=== PATIENT | female | born 1995 | race Two or more races ===

== ENCOUNTER 2020-01-25 11:22 | Outpatient (CLI) | payer OTHER ==
[2020-01-25] MEDS ORDERED: RINGERS SOLUTION,LACTATED 1,000 ML IV PRN (12:02)
[2020-01-25 13:12] LABS: ABSOLUTE EOSINOPHILS # (AUTO) 0.1 10^3/uL (0.0-0.6); ABSOLUTE LYMPHOCYTES (AUTO) 1.6 10^3/uL (0.5-4.7); ABSOLUTE MONOCYTES (AUTO) 0.8 10^3/uL (0.1-1.4); BASOPHILS % (AUTO) 0.4 % (0-2); EOSINOPHILS % (AUTO) 1.3 % (0-6); HEMATOCRIT 31.2 % (36.0-47.0); HEMOGLOBIN 10.4 g/dL (12.0-15.5); LYMPHOCYTES % (AUTO) 15.1 % (13-45); MEAN CORPUSCULAR HEMOGLOBIN 26.2 pg (27.0-33.4); MEAN CORPUSCULAR HGB CONC 33.5 g/dL (32.0-36.0); MEAN CORPUSCULAR VOLUME 78 fl (80-97); MONOCYTES % (AUTO) 7.4 % (3-13); PLATELET COUNT 116 10^3/uL (150-450); RED BLOOD COUNT 3.98 10^6/uL (3.72-5.28); RED CELL DISTRIBUTION WIDTH 14.8 % (11.5-14.0); SEGMENTED NEUTROPHILS % (AUTO) 75.8 % (42-78); TOTAL CELLS COUNTED % (AUTO) 100 %; WHITE BLOOD COUNT 10.6 10^3/uL (4.0-10.5)
[2020-01-25 13:30] LABS: ALBUMIN 3.1 g/dL (3.5-5.0); ALKALINE PHOSPHATASE 194 U/L (38-126); ANION GAP 5 (5-19); ASPARTATE AMINO TRANSFERASE 20 U/L (14-36); BILIRUBIN,DIRECT 0.2 mg/dL (0.0-0.4); BILIRUBIN,TOTAL 0.5 mg/dL (0.2-1.3); BLOOD UREA NITROGEN 5 mg/dL (7-20); CALCIUM 8.9 mg/dL (8.4-10.2); CARBON DIOXIDE 25 mmol/L (22-30); CHLORIDE 104 mmol/L (98-107); GLUCOSE 96 mg/dL (75-110); POTASSIUM 3.6 mmol/L (3.6-5.0); URIC ACID 4.3 mg/dL (2.5-6.2)
[2020-01-25 14:29] LABS: APPEARANCE,URINE SLIGHTLY-CLOUDY; BILIRUBIN,URINE NEGATIVE (NEGATIVE); COLOR,URINE YELLOW; GLUCOSE, URINE NEGATIVE (NEGATIVE); KETONES,URINE NEGATIVE (NEGATIVE); LEUKOCYTE ESTERASE,URINE LARGE (NEGATIVE); NITRITE,URINE NEGATIVE (NEGATIVE); PROTEIN,URINE NEGATIVE (NEGATIVE); URINE SPECIFIC GRAVITY 1.013; UROBILINOGEN,URINE NEGATIVE mg/dL (<2.0)
[2020-01-25 14:42] LABS: URINE AMPHETAMINES SCREEN NEGATIVE; URINE BARBITURATES SCREEN NEGATIVE; URINE BENZODIAZEPINES SCREEN NEGATIVE; URINE COCAINE SCREEN NEGATIVE; URINE MARIJUANA (THC) SCREEN NEGATIVE; URINE METHADONE SCREEN NEGATIVE; URINE PHENCYCLIDINE SCREEN NEGATIVE
[2020-01-25 18:51] LABS: UR PRO/CREAT RATIO RESULT 0.2 mg/mg (0.0-0.2); URINE CREATININE 103.3 mg/dL (16-327); URINE PROTEIN 24.6 mg/dL (<12)
== END 2020-01-25 14:32 | disposition home or self-care (01) ==
LOC: LC 11:22
PROVIDERS: ATTEND Student in an Organized Health Care Education/Training Program
DX: O16.3 Unspecified maternal hypertension, third trimester (principal); Z3A.40 40 weeks gestation of pregnancy
CPT/HCPCS: 36415; 59025; 80053; 80307; 81001; 82570; 83615; 84156; 84550; 85025

== ENCOUNTER 2020-01-26 11:10 | Outpatient (CLI) | payer OTHER ==
[2020-01-26 13:03] LABS: APPEARANCE,URINE CLOUDY; BILIRUBIN,URINE NEGATIVE (NEGATIVE); COLOR,URINE YELLOW; GLUCOSE, URINE NEGATIVE (NEGATIVE); KETONES,URINE NEGATIVE (NEGATIVE); LEUKOCYTE ESTERASE,URINE LARGE (NEGATIVE); NITRITE,URINE NEGATIVE (NEGATIVE); PROTEIN,URINE NEGATIVE (NEGATIVE); URINE SPECIFIC GRAVITY 1.004; UROBILINOGEN,URINE NEGATIVE mg/dL (<2.0)
[2020-01-26 13:34] LABS: URINE AMPHETAMINES SCREEN NEGATIVE; URINE BARBITURATES SCREEN NEGATIVE; URINE BENZODIAZEPINES SCREEN NEGATIVE; URINE COCAINE SCREEN NEGATIVE; URINE MARIJUANA (THC) SCREEN NEGATIVE; URINE METHADONE SCREEN NEGATIVE; URINE PHENCYCLIDINE SCREEN NEGATIVE
[2020-01-26] MEDS ORDERED: HYDROXYZINE PAMOATE 50 MG CAPSULE ONE (13:36)
[2020-01-26] MEDS ORDERED: HYDROXYZINE PAMOATE 50 MG CAPSULE PO ONE (13:40)
--- NOTE | 2020-01-26 14:03 | Non Stress Test Report ---
Non Stress Test Datetime Report Generated by CPN: 01/26/2020 14:03 DEMOGRAPHIC EGA NST: 40.2 INDICATION Indication for Study (NST) Other: LC- ctxs VITAL SIGNS Temperature - NST: 98.3 Pulse - NST: 73 RESP - NST: 15 NBPSYS NST: 146 NBPDIA NST: 84 MONITORING Monitor Explained: Monitor Explained; Test Explained; Patient Verbalized Understanding Time on Monitor: 01/26/2020 11:34 Time off Monitor: 01/26/2020 12:27 NST Duration: 53 NST INTERVENTIONS NST Interventions: PO Hydration Physician Notified NST: Dr Negro BABY A: [id number] BABY A Movement : Present Contraction Frequency : irregular FHR Baseline : 140 Accelerations : 15X15 Decelerations : None Variability : Moderate 6-25bpm NST Review: Meets Criteria for Reactive NST NST Review and Verified By : K Cameron, RN NST Results: Reactive NST COMMENTS NST Comments: MD on unit NST REPORT Report Trigger: Send Report
== END 2020-01-26 13:50 | disposition home or self-care (01) ==
LOC: LC 11:10
PROVIDERS: ATTEND Obstetrics & Gynecology
DX: O16.3 Unspecified maternal hypertension, third trimester (principal); Z3A.40 40 weeks gestation of pregnancy
CPT/HCPCS: 59025; 80307; 81005

== ENCOUNTER 2020-01-26 22:55 | Outpatient (CLI) | payer OTHER ==
[2020-01-26 23:26] LABS: APPEARANCE,URINE CLOUDY; BILIRUBIN,URINE NEGATIVE (NEGATIVE); COLOR,URINE RED; GLUCOSE, URINE NEGATIVE (NEGATIVE); KETONES,URINE NEGATIVE (NEGATIVE); LEUKOCYTE ESTERASE,URINE LARGE (NEGATIVE); NITRITE,URINE NEGATIVE (NEGATIVE); PROTEIN,URINE 30 mg/dL (NEGATIVE); URINE SPECIFIC GRAVITY 1.011; UROBILINOGEN,URINE NEGATIVE mg/dL (<2.0)
[2020-01-26 23:41] LABS: URINE AMPHETAMINES SCREEN NEGATIVE; URINE BARBITURATES SCREEN NEGATIVE; URINE BENZODIAZEPINES SCREEN NEGATIVE; URINE COCAINE SCREEN NEGATIVE; URINE MARIJUANA (THC) SCREEN NEGATIVE; URINE METHADONE SCREEN NEGATIVE; URINE PHENCYCLIDINE SCREEN NEGATIVE
[2020-01-27] MEDS ORDERED: NALBUPHINE HCL INJ 10 MG/1 ML AMPULE ONE (01:40)
[2020-01-27] MEDS ORDERED: PROMETHAZINE HCL INJ 25 MG/1 ML VIAL ONE (01:40)
[2020-01-27] MEDS ORDERED: NALBUPHINE HCL INJ 10 MG/1 ML AMPULE IM ONE (01:41)
[2020-01-27] MEDS ORDERED: NALBUPHINE HCL INJ 10 MG/1 ML AMPULE IV ONE (01:41)
[2020-01-27] MEDS ORDERED: PROMETHAZINE HCL INJ 25 MG/1 ML VIAL IV ONE (01:42)
--- NOTE | 2020-01-27 02:17 | Non Stress Test Report ---
Non Stress Test Datetime Report Generated by CPN: 01/27/2020 02:16 DEMOGRAPHIC EGA NST: 40.2 INDICATION Indication for Study (NST) Other: labor check MONITORING Monitor Explained: Monitor Explained; Test Explained; Patient Verbalized Understanding Time on Monitor: 01/26/2020 23:05 Time off Monitor: 01/27/2020 02:06 NST Duration: 181 NST INTERVENTIONS NST Interventions: IV Fluids Physician Notified NST: Negro BABY A: [id number] BABY A Movement : Present Contraction Frequency : irregular FHR Baseline : 155 Accelerations : 15X15 Decelerations : None NST Review: Meets Criteria for Reactive NST NST Review and Verified By : ESTEBAN [place] NST Results: Reactive NST COMMENTS NST Comments: Dr Negro on unit and reviewed tracing. NST REPORT Report Trigger: Send Report
== END 2020-01-27 02:18 | disposition home or self-care (01) ==
LOC: LC 22:55
PROVIDERS: ATTEND Obstetrics & Gynecology
DX: O47.1 False labor at or after 37 completed weeks of gestation (principal); Z3A.40 40 weeks gestation of pregnancy
CPT/HCPCS: 59025; 81005; 80307; J2300; J2550

== ENCOUNTER 2020-01-27 09:38 | Inpatient (IN) | payer OTHER ==
[2020-01-27] MEDS ORDERED: PENICILLIN G POTASSIUM 5,000,000 UNIT in DEXTROSE 5%-WATER 100 ML IV ONE (10:03)
[2020-01-27] MEDS ORDERED: OXYTOCIN 10 UNIT/ML VIAL ONE (10:14)
[2020-01-27] MEDS ORDERED: OXYTOCIN/0.9 % SODIUM CHLORIDE 30 UNIT/500 ML RTUINJ ONE (10:14)
[2020-01-27] MEDS ORDERED: MISOPROSTOL 0.2 MG TABLET ONE (10:14)
[2020-01-27] MEDS ORDERED: PENICILLIN G-K 5 MILLION UNIT VIAL ONE ×4 (10:14→22:17)
[2020-01-27] MEDS ORDERED: LIDOCAINE 1% INJ-PF (10 MG/ML) 30 ML SDV ONE (10:14)
[2020-01-27 10:26] LABS: ABSOLUTE BASOPHILS # (AUTO) 0.1 10^3/uL (0.0-0.2); ABSOLUTE LYMPHOCYTES (AUTO) 1.5 10^3/uL (0.5-4.7); ABSOLUTE MONOCYTES (AUTO) 0.7 10^3/uL (0.1-1.4); ABSOLUTE NEUT (AUTO) 12.2 10^3/uL (1.7-8.2); BASOPHILS % (AUTO) 0.4 % (0-2); HEMOGLOBIN 11.2 g/dL (12.0-15.5); LYMPHOCYTES % (AUTO) 10.6 % (13-45); MEAN CORPUSCULAR HEMOGLOBIN 26.4 pg (27.0-33.4); MEAN CORPUSCULAR VOLUME 78 fl (80-97); PLATELET COUNT 122 10^3/uL (150-450); RED BLOOD COUNT 4.25 10^6/uL (3.72-5.28); RED CELL DISTRIBUTION WIDTH 14.6 % (11.5-14.0); TOTAL CELLS COUNTED % (AUTO) 100 %; WHITE BLOOD COUNT 14.5 10^3/uL (4.0-10.5)
[2020-01-27] MEDS: RINGERS SOLUTION,LACTATED 1,000 ML IV PRN ×2 (10:27→18:12)
[2020-01-27] MEDS ORDERED: FENTANYL/BUPIVACAINE/NS/PF 300 MCG/150 ML RTUINJ EPI ONE ×2 (10:32→23:57)
[2020-01-27] MEDS ORDERED: ROPIVACAINE HCL 0.2% INJ/PF (2 MG/ML) 20 ML SDV ONE (10:32)
[2020-01-27] MEDS ORDERED: EPHEDRINE SULFATE INJ 50 MG/1 ML AMPULE ONE (10:32)
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
[2020-01-27 11:15] LABS: APPEARANCE,URINE SLIGHTLY-CLOUDY; BILIRUBIN,URINE NEGATIVE (NEGATIVE); COLOR,URINE YELLOW; GLUCOSE, URINE NEGATIVE (NEGATIVE); KETONES,URINE 20 mg/dL (NEGATIVE); LEUKOCYTE ESTERASE,URINE MODERATE (NEGATIVE); NITRITE,URINE NEGATIVE (NEGATIVE); PROTEIN,URINE NEGATIVE (NEGATIVE); URINE SPECIFIC GRAVITY 1.003; UROBILINOGEN,URINE NEGATIVE mg/dL (<2.0)
[2020-01-27 11:41] LABS: URINE AMPHETAMINES SCREEN NEGATIVE; URINE BARBITURATES SCREEN NEGATIVE; URINE BENZODIAZEPINES SCREEN NEGATIVE; URINE COCAINE SCREEN NEGATIVE; URINE MARIJUANA (THC) SCREEN NEGATIVE; URINE METHADONE SCREEN NEGATIVE; URINE PHENCYCLIDINE SCREEN NEGATIVE
[2020-01-27] MEDS: PENICILLIN G POTASSIUM 2,500,000 UNIT in DEXTROSE 5%-WATER 50 ML IV SCH ×3 (14:41→22:20)
[2020-01-27 15:27] LABS: ALBUMIN 3.3 g/dL (3.5-5.0); ALKALINE PHOSPHATASE 230 U/L (38-126); ANION GAP 7 (5-19); ASPARTATE AMINO TRANSFERASE 25 U/L (14-36); BILIRUBIN,DIRECT 0.3 mg/dL (0.0-0.4); BILIRUBIN,TOTAL 0.9 mg/dL (0.2-1.3); BLOOD UREA NITROGEN 5 mg/dL (7-20); CALCIUM 9.5 mg/dL (8.4-10.2); CARBON DIOXIDE 21 mmol/L (22-30); CHLORIDE 103 mmol/L (98-107); GLUCOSE 100 mg/dL (75-110); POTASSIUM 3.9 mmol/L (3.6-5.0); TOTAL PROTEIN 6.3 g/dL (6.3-8.2); URIC ACID 4.4 mg/dL (2.5-6.2)
[2020-01-27] MEDS ORDERED: DIPHENHYDRAMINE HCL 50 MG/ML VIAL ONE (18:54)
[2020-01-28] MEDS: PENICILLIN G POTASSIUM 2,500,000 UNIT in DEXTROSE 5%-WATER 50 ML IV SCH ×5 (02:12→22:06)
[2020-01-28] MEDS ORDERED: DIPHENHYDRAMINE HCL 50 MG/ML VIAL ONE (10:25)
[2020-01-28] MEDS ORDERED: DIPHENHYDRAMINE HCL 50 MG/ML VIAL IV ONE (10:26)
[2020-01-28] MEDS ORDERED: CITRIC ACID/SODIUM CITRATE ORAL SOLN 15 ML UDCUP ONE (11:49)
[2020-01-28] MEDS ORDERED: CEFAZOLIN 2 GM/D5W RTU 2 GM/50 ML RTUPB IV ONE (11:49)
--- NOTE | 2020-01-28 11:57 | L&D Progress Notes ---
PROGRESS NOTES Datetime Report Generated by CPN: 01/28/2020 11:57 PROGRESS NOTE Impression: Arrest of Dilatation/Descent; Reassuring Heart Rate Procedures: Sterile Vag Exam Plan: Deliver- Section Comment: Arrest of dilation and descent, discussed turning off pitocin, will prepare for CS, Dr. Chopra to be notified. VAGINAL EXAM Dilatation: 9 Effacement: 70 Station: -1 LAST VAGINAL EXAM-NURSING Nursing Exam Dilitation: 9.0 Nursing Exam Effacement: 90 Nursing Exam Station: 1 Nursing Exam Contractions: IUPC sitting at introitus. Removed with external toco applied . Contractions palpate moderate to strong with relaxation noted. Dr Chopra on unit and notified that IUPC had come out. MEMBRANES Membranes: Ruptured Amniotic Fluid Color: Clear SIGNATURE SIGNATURE: [id number];[id number];[id number] Assignment: Kermit Chopra MD Signature: with User ID: [email or web address] : with User ID: [email or web address]
[2020-01-28] MEDS ORDERED: MIDAZOLAM 2 MG/2 ML INJ ONE (12:35)
[2020-01-28] MEDS ORDERED: LIDOCAINE 2% INJ-PF (20 MG/ML) 10 ML AMPUL ONE (12:35)
[2020-01-28] MEDS ORDERED: KETOROLAC TROMETHAMINE INJ/PF 30 MG/1 ML SDV ONE (12:35)
[2020-01-28] MEDS ORDERED: FENTANYL CITRATE INJ/PF 100 MCG/2 ML AMPUL ONE ×3 (12:35→14:01)
[2020-01-28] MEDS ORDERED: OXYTOCIN 10 UNIT/ML VIAL ONE ×2 (12:35→13:18)
[2020-01-28] MEDS ORDERED: EPHEDRINE SULFATE INJ 50 MG/1 ML AMPULE ONE (12:35)
[2020-01-28] MEDS ORDERED: OXYTOCIN/0.9 % SODIUM CHLORIDE 30 UNIT/500 ML RTUINJ ONE (12:36)
[2020-01-28] MEDS ORDERED: ACETAMINOPHEN 1,000 MG/100 ML RTUPB IV ONE (12:36)
[2020-01-28] MEDS ORDERED: ONDANSETRON HCL INJ/PF 4 MG/2 ML SDV ONE (12:36)
[2020-01-28] MEDS ORDERED: METHYLERGONOVINE MALEATE INJ/PF 0.2 MG/1 ML AMPULE ONE (13:22)
[2020-01-28] MEDS ORDERED: CARBOPROST TROMETHAMINE INJ 250 MCG/1 ML AMPULE ONE (13:22)
[2020-01-28] MEDS ORDERED: MISOPROSTOL 0.2 MG TABLET ONE (13:22)
[2020-01-28] MEDS ORDERED: PROPOFOL INJ 200 MG/20 ML VIAL IV ONE (13:26)
[2020-01-28] MEDS ORDERED: MEASLES,MUMPS&RUBELLA VACC/PF 0.5 ML VIAL SUBCUT PRN (13:45)
[2020-01-28] MEDS ORDERED: DIPH/PERTUSS(ACELL)/TETANUS VAC/PF 0.5 ML SYR (>=10YO) IM PRN (13:45)
[2020-01-28] MEDS ORDERED: ACETAMINOPHEN 1,000 MG/100 ML RTUPB IV PRN (13:45)
[2020-01-28] MEDS ORDERED: MORPHINE SULFATE 10 MG/ML INJ IM PRN (13:45)
[2020-01-28] MEDS ORDERED: OXYTOCIN/0.9 % SODIUM CHLORIDE 30 UNIT/500 ML RTUINJ IV PRN (13:45)
[2020-01-28] MEDS ORDERED: RINGERS SOLUTION,LACTATED 1,000 ML IV PRN (13:45)
[2020-01-28] MEDS ORDERED: ACETAMINOPHEN 325 MG TABLET PO PRN (13:45)
--- NOTE | 2020-01-28 13:49 | Operative Report ---
Operative Report DATE OF SURGERY: 01/28/20 PREOPERATIVE DIAGNOSIS: IUP at term failure to descend POSTOPERATIVE DIAGNOSIS: Same OPERATION: Primary low transverse O viable female SURGEON: JAYDEN GUTIERREZ ANESTHESIA: GA TISSUE REMOVED OR ALTERED: Placenta COMPLICATIONS: None ESTIMATED BLOOD LOSS: Thousand cc PROCEDURE: The patient was taken to the operating room where spinal anesthesia was obtained and found to be adequate. She was then prepped and draped in the normal sterile fashion and placed in the dorsal supine position with a leftward tilt. A Pfannenstiel skin incision was then made and carried through to the underlying layers of the fascia with the scalpel. The fascia was incised in the midline and the incision extended laterally with the Kat scissors. The superior aspect of the fascial incision was then grasped with [place] clamps elevated and the underlying rectus muscles dissected off bluntly. Attention was then turned to the inferior aspect of the fascial incision which in a similar fashion was grasped, tented up with Cayden clamps, and the rectus muscles dissected off bluntly. The rectus muscles were then in the midline and the peritoneum at the amount identified and entered bluntly. The peritoneal incision was then extended superiorly and inferiorly with good visualization of the bladder. [The bladder blade was inserted and the vesicouterine peritoneum identified grasped with [place] pickups and entered sharply with the Metzenbaum scissors. His incision was then extended laterally with the Metzenbaum scissors and a bladder flap created digitally. The bladder blade was then reinserted and the lower uterine segment incised in a transverse fashion with the scalpel. The uterine incision was then extended bluntly. The bladder blade was removed and the 's head was delivered from cephalic presentation atraumatically. The nose and mouth were suctioned and the cord doubly clamped and cut. And the infant was handed off to waiting pediatricians. The placenta was then delivered manully and the uterus exteriorized and cleared of all clots and debris. The uterine incision was then repaired with 1-0 Vicryl in a running locked fashion. A second layer of the same suture was used to obtain hemostasis via imbrication of the initial layer. The uterus was returned to the patient's abdomen. The gutters were cleared of all clots and debris. All operative sites were noted to be hemostatic. The fascia was reapproximated with 0 Vicryl in a running fashion from each lateral edge to the midline. The patient tolerated the procedure well. Sponge lap needle and instrument counts are correct -2. 2 g of Ancef were given prior to skin i ncision. The patient was taken to the recovery area awake and in stable condition.
--- NOTE | 2020-01-28 15:08 | Delivery Summary ---
Del Sum A-C Datetime Report Generated by CPN: 01/28/2020 15:08 DELIVERY PERSONNEL DELIVERY PERSONNEL: [id number] Delivery Doctor:: Kermit Chopra MD ELECTRONIC COMMUNICATIONS TECHNICIAN:: Jefferson Horne CRNA Case Technician:: Albina Brizuela RN Oil Rig Driller:: Dr. Marysol Funez Nursery Nurse:: Debbie Hay RN Nursery Nurse:: Noelle Aguilar RN Lithographing Machine Operator/ARCHITECTURE DRAFTER: Bertha Haskins, DIRECTOR OF SPORTS PERFORMANCE Lithographing Machine Operator/ARCHITECTURE DRAFTER: Gael Trimble, DIRECTOR OF SPORTS PERFORMANCE MATERNAL INFORMATION Delivery Anesthesia: Epidural; General Medications After Delivery: Pitocin 30 Units in 500ml NS/D5W; Methergine 0.2mg IM; Cytotec 1000mcg Per Rectum/Vagina Delivery QBL: 1147 Maternal Complications: Premature Rupture of Membranes; Hemorrhage; Prolonged Labor > 20 Hrs LABOR SUMMARY EDC: 01/24/2020 00:00 No. Babies in Womb: 1 Attempted: No Labor Anesthesia: Epidural LABOR INFORMATION Reason for Induction: Post Dates Onset of Labor: 01/27/2020 09:30 Oxytocin: Augmentation Group B Beta Strep: positive Antibiotics # of Doses: 7 Antibiotics Time of Last Dose: 01/28/2020 10:15 Name of Antibiotic Given: pcn Steroids Given: None Reason Steroids Not Administered: Not Applicable MEMBRANES Membranes Rupture Method: Spontaneous Rupture of Membranes: 01/27/2020 09:30 Length of Rupture (hr): 27.65 Amniotic Fluid Color: Moderate Meconium Amniotic Fluid Amount: Moderate Amniotic Fluid Odor: None STAGES OF LABOR Stage 3 hr: 0 Stage 3 min: 0 Total Time in Labor hr: 27 Total Time in Labor min: 39 VAGINAL DELIVERY Episiotomy: None Laceration #1: None Laceration Extension #1: N/A Sponge Count Correct: N/A Sharps Count Correct: N/A CSECTION DELIVERY Primary Indication: Failure of Descent Secondary Indication: N/A CSection Urgency: Non-Scheduled CSection Incidence: Primary Labor: Labor Elective: Nonelective CSection Incision: Lower Uterine Transverse BABY A INFORMATION Delivery Date/Time: 01/28/2020 13:09 Method of Delivery: Nurse Controlled Delivery: No Born in Route : No : N/A Forceps: N/A Vacuum Extraction: N/A Shoulder Dystocia : No PRESENTATION/POSITION BABY A Presentation: Cephalic Cephalic Presentation: Vertex Vertex Position: Left Occipital Anterior Breech Presentation: N/A PLACENTA INFORMATION BABY A Placenta Delivery Time : 01/28/2020 13:09 Placenta Method of Delivery: Manual Removal Placenta Status: Delivered SCORES BABY A Heart Rate 1 min: >100 bpm Resp Effort 1 min: Slow, Irregular Reflex Irritability 1 min: Cough or Sneeze or Pulls Away Muscle Tone 1 min: Active Motion Color 1 min: Blue/Pale Resuscitation Effort 1 min: Tactile Stimulation SCORE 1 MIN: 7 Heart Rate 5 min: >100 bpm Resp Effort 5 min: Good Cry Reflex Irritability 5 min: Cough or Sneeze or Pulls Away Muscle Tone 5 min: Active Motion Color 5 min: Body [place], Extremities Blue Resuscitation Effort 5 min: N/A SCORE 5 MIN: 9 INFORMATION BABY A Gestational Age at Delivery: 40.4 Gestational Status: Full Term- 39- 40.6 Weeks Outcome : Liveborn Condition : Stable Infant Sex: Female WEIGHT/LENGTH BABY A Infant Birthweight (gm): 3860 Weight (lb): 8 Infant Weight (oz): 8 Length (in): 20.50 Length (cm): 52.07 CORD INFORMATION BABY A No. Cord Vessels: 3 Nuchal Cord : N/A Cord Blood Taken: Yes-For Storage (Mom's Blood type +) Infant Suction: None ASSESSMENT BABY A Infant Complications: None Physical Findings at Delivery: Within Normal Limits Skin to Skin: No Transferred To: [facility] BABY B INFORMATION : N/A SIGNATURES Signature: with User ID: [email or web address] : I was personally available for consultation and serving as supervising physician for the MLP.
--- NOTE | 2020-01-28 15:09 | Birth Certificate Data ---
Cert Data Datetime Report Generated by CPMaye: 01/28/2020 15:08 CERTIFICATE DATA 47a. Care: Yes (01/25/2020 11:36:May Kelly RN) 47b. Date of First Visit: 07/10/2018 00:00 (01/25/2020 11:36:May Kelly RN) 47c. Date of Last Visit: 01/25/2020 00:00 (01/25/2020 11:36:May Kelly RN) 47d. Number of Visits: 12 (01/25/2020 11:36:May Kelly RN) 48a. Number of Prev Live Births: 0 (01/25/2020 11:36:May Kelly RN) 48b. Now Livin (01/25/2020 11:36:May Kelly RN) 48c. Live Births Now : 0 (01/25/2020 11:36:QS system process) 48e. Losses: 0 (01/25/2020 11:36:May Kelly RN) RISK FACTORS IN THIS 49a. Diabetes: No (01/25/2020 11:36:Vandana Call RN) 49b. Hypertension: No (01/25/2020 11:36:Vandana Call RN) 49c. Previous Births: 0 (01/25/2020 11:36:May Kelly RN) 49d. Stillborns: No (01/25/2020 11:36:Vandana Call RN) 49d. IUGR: No (01/25/2020 11:36:Vandana Call RN) 49e. Infertility Treatment: No (01/25/2020 11:36:Vandana Call RN) 49f. Previous Cesareans: 0 (01/25/2020 11:36:May Kelly RN) Mother's Height 50b. Height Inches: 64 (01/28/2020 11:21:QS system process) Mother's Weight 51a. Pre- Weight (lbs): 117 (01/25/2020 11:36:Vandana Call RN) 51b. Weight at Delivery (lbs): 185 (01/27/2020 19:24:QS system process) 52. Dt Last Normal Menses Began: 04/19/2019 00:00 (01/25/2020 11:36:Albina Brizuela RN) Infections Present/Treated 53a. Gonorrhea: No (01/25/2020 11:36:Vandana Call RN) Results this Hospital Visit : Negative (01/25/2020 11:36:May Kelly RN) 53b. Syphilis: No (01/25/2020 11:36:Vandana Call RN) Results this Hospital Visit: NONREACTIVE (01/27/2020 10:14:QS system process) 53c. Chlamydia: No (01/25/2020 11:36:Vandana Call RN) Results this Hospital Visit: Negative (01/25/2020 11:36:May Kelly RN) 53d. Hepatitis B: No (01/25/2020 11:36:Vandana Call RN) Results this Hospital Visit: Negative (01/25/2020 11:36:Vandana Call RN) 53h. Mother Tested for HBsAG: Yes (01/25/2020 11:36:Albina Brizuela RN) 53i. Date Tested: 07/11/2019 00:00 (01/25/2020 11:36:Albina Brizuela RN) 53j. Test Result: Negative (01/25/2020 11:36:Vandana Call RN) Obstetric Procedures 54a, b, c. Obstetric Procedures: Ultrasound; NST (01/25/2020 11:36:Vandana Call RN) Cigarette Smoking Cigarette Smoking: Never Smoker. [id number] (01/25/2020 11:36:Vandana Call RN) 55a. 3 Months Before Preg - Ci (01/25/2020 11:36:Albina Brizuela RN) 55a. Packs: 0 (01/25/2020 11:36:Albina Brizuela RN) 55b. 1st Trimester of Preg- Ci (01/25/2020 11:36:Albina Brizuela RN) 55b. Packs: 0 (01/25/2020 11:36:Albina Brizuela RN) 55c. 2nd Trimester of Preg- Ci (01/25/2020 11:36:Albina Brizuela RN) 55c. Packs: 0 (01/25/2020 11:36:Albina Brizuela RN) 55d. 3rd Trimester of Preg- Ci (01/25/2020 11:36:Albina Brizuela RN) 55d. Packs: 0 (01/25/2020 11:36:Albina Brizuela RN) Onset of Labor 56a. PROM >12 Hrs: 27.65 (01/27/2020 10:00:QS system process) 56b. Precipitous Labor <3 Hrs: 27 (01/25/2020 11:36:QS system process) 56c. Prolonged Labor > 20 Hrs: 27 (01/25/2020 11:36:QS system process) 57a. Induction of Labor: Augmentation (01/25/2020 11:36:Vandana Call RN) 57c. Non-Vertex Presentation A: Vertex (01/25/2020 11:36:Albina Brizuela RN) 57d. Steroids - Lung Mat: None (01/25/2020 11:36:Vandana Call RN) 57d. Steroids - Lung Mat: Not Applicable (01/25/2020 11:36:Vandana Call RN) 57e. Antibiotics During Labor: 01/28/2020 10:15 (01/25/2020 11:36:Albina Brizuela RN) 57g. Moderate/Heavy Meconium: Moderate Meconium (01/27/2020 10:00:May Kelly RN) 57h. Intolerance of Labor: Failure of Descent (01/25/2020 11:36:Kermit Chopra MD ([facility])) : N/A (01/25/2020 11:36:Albina Brizuela RN) 57i. Epidural/Spinal Anesthesia: Epidural (01/25/2020 11:36:Vandana Call RN) Method of Delivery 58a. Forceps - Unsuccessful A: N/A (01/25/2020 11:36:Albina Brizuela RN) 58b. Vacuum - Unsuccessful A: N/A (01/25/2020 11:36:Albina Brizuela RN) 58c. Presentation at 58c. Presentation at - A : Vertex (01/25/2020 11:36:Albina Brizuela RN) 58c. Presentation at - A : N/A (01/25/2020 11:36:Albina Brizuela RN) 58c. Presentation at - A : Cephalic (01/27/2020 01:36:Elizabeth Horowitz RN) Final Route and Method of Del 58d. Baby A Route/Delivery: (01/25/2020 11:36:Albina Brizuela RN) 58e. Trial of Labor Attempted: No (01/25/2020 11:36:Vandana Call RN) 58e. Trial of Labor Attempted A: N/A (01/25/2020 11:36:Vandana Call RN) 58e. Trial of Labor Attempted B: N/A (01/25/2020 11:36:Vandana Call RN) Maternal Morbidity 59b. 3rd or 4th Degree Lacs: None (01/25/2020 11:36:Albina Brizuela RN) Birthweight Baby A: 3860 (01/25/2020 11:36:Albina Brizuela RN) 60a. Pounds : 8 (01/25/2020 11:36:QS system process) 60b. Ounces: 8 (01/25/2020 11:36:QS system process) 61. GA at Delivery Baby A: 40.4 (01/25/2020 11:36:Albina Brizuela RN) : Full Term- 39- 40.6 Weeks (01/25/2020 11:36:QS system process) 62a. 5 Minute Baby A: 9 (01/25/2020 11:36:QS system process)
[2020-01-28] MEDS ORDERED: MORPHINE SULFATE 10 MG/ML INJ ONE (15:13)
[2020-01-28] MEDS: KETOROLAC TROMETHAMINE INJ/PF 30 MG/1 ML SDV IV SCH ×2 (15:20→22:16)
[2020-01-28] MEDS: DOCUSATE SODIUM 100 MG CAPSULE PO SCH (17:12)
[2020-01-28] MEDS: OXYCODONE-ACETAMINOPHEN 5-325 MG TABLET PO PRN ×2 (17:13→23:47)
[2020-01-29] MEDS: PENICILLIN G POTASSIUM 2,500,000 UNIT in DEXTROSE 5%-WATER 50 ML IV SCH ×2 (02:02→06:04)
[2020-01-29] MEDS: KETOROLAC TROMETHAMINE INJ/PF 30 MG/1 ML SDV IV SCH (05:56)
[2020-01-29] MEDS: OXYCODONE-ACETAMINOPHEN 5-325 MG TABLET PO PRN ×3 (07:46→17:48)
[2020-01-29 07:51] LABS: HEMATOCRIT 25.3 % (36.0-47.0); MEAN CORPUSCULAR HEMOGLOBIN 26.2 pg (27.0-33.4); MEAN CORPUSCULAR HGB CONC 33.4 g/dL (32.0-36.0); MEAN CORPUSCULAR VOLUME 79 fl (80-97); PLATELET COUNT 111 10^3/uL (150-450); RED BLOOD COUNT 3.22 10^6/uL (3.72-5.28); RED CELL DISTRIBUTION WIDTH 15.6 % (11.5-14.0)
[2020-01-29 08:01] LABS: HEMOGLOBIN 8.4 g/dL (12.0-15.5)
[2020-01-29] MEDS: PRENATAL VITAMIN W DHA CAPSULE PO SCH (09:12)
[2020-01-29] MEDS: DOCUSATE SODIUM 100 MG CAPSULE PO SCH ×2 (09:12→17:48)
[2020-01-29] MEDS: SIMETHICONE 80 MG TAB.CHEW PO PRN (11:04)
[2020-01-29] MEDS: IBUPROFEN 800 MG TABLET PO SCH ×3 (11:50→23:15)
--- NOTE | 2020-01-29 12:16 | PDOC PROGRESS REPORT ---
Subjective-OB Progress Note for:: 01/29/20 Subjective: reports bleeding slowing, pain controlled with current meds. not passing gas. Physical Exam (OB) Vital Signs: Temp Pulse Resp BP Pulse Ox 98.4 F 104 H 16 122/80 94 01/29/20 11:35 01/29/20 11:35 01/29/20 11:35 01/29/20 11:35 01/29/20 11:35 Intake & Output 01/28/20 01/29/20 01/30/20 06:59 06:59 06:59 Intake Total 967 2740 950 Output Total 3850 400 Balance 967 -1110 550 Weight 84 kg - Dressing Removed: Yes - pressure dressing removed Incision: Open, Well Approximated - Maternal Morbidity 59. Maternal Morbidity (serious complications experinced by the mother associated with labor and delivery: None of the above - Lochia Lochia Amount: Small 10-25 ml Lochia Color: Rubra/Red - Abdomen Description: Tender, Soft, Round Hernia Present: No Bowel Sounds: Hyperactive Fundal Description: Firm Fundal Height: u/u - u/2 - Abdominal Distension: Distended - soft - Extremities Lower extremities: Gudelia's sign - neg Calf: Normal, Nontender Objective-Diagnostic Laboratory: 01/29/20 07:04 01/27/20 14:50 01/29/20 07:04 WBC 19.0 H RBC 3.22 L Hgb 8.4 L D Hct 25.3 L MCV 79 L MCH 26.2 L MCHC 33.4 RDW 15.6 H Plt Count 111 L Assessment and Plan(PN) - Time Spent with Patient Time with patient: Less than 15 minutes Medications reviewed and adjusted accordingly: Yes - Disposition Anticipated Discharge Disposition: Home, Self Care Anticipated Discharge Timeframe: within 48 hours
[2020-01-29] MEDS: PROMETHAZINE HCL INJ 25 MG/1 ML VIAL IV PRN (23:13)
[2020-01-30] MEDS: IBUPROFEN 800 MG TABLET PO SCH ×3 (00:39→12:51)
[2020-01-30] MEDS: PROMETHAZINE HCL INJ 25 MG/1 ML VIAL IV PRN (07:16)
[2020-01-30] MEDS: PRENATAL VITAMIN W DHA CAPSULE PO SCH (09:54)
[2020-01-30] MEDS: DOCUSATE SODIUM 100 MG CAPSULE PO SCH (09:54)
[2020-01-30 11:46] LABS: HEMATOCRIT 24.5 % (36.0-47.0); HEMOGLOBIN 8.3 g/dL (12.0-15.5); MEAN CORPUSCULAR HEMOGLOBIN 26.7 pg (27.0-33.4); MEAN CORPUSCULAR HGB CONC 33.9 g/dL (32.0-36.0); MEAN CORPUSCULAR VOLUME 79 fl (80-97); PLATELET COUNT 143 10^3/uL (150-450); RED BLOOD COUNT 3.11 10^6/uL (3.72-5.28); RED CELL DISTRIBUTION WIDTH 15.6 % (11.5-14.0); WHITE BLOOD COUNT 18.5 10^3/uL (4.0-10.5)
[2020-01-30 11:54] VITALS: BP 138/85
[2020-01-30] MEDS: SIMETHICONE 80 MG TAB.CHEW PO PRN (12:53)
--- NOTE | 2020-01-30 13:15 | PDOC DISCHARGE SUMMARY ---
Impression - Admit/DC Date/PCP Admission Date/Primary Care Provider: 01/27/20 10:35 ANASTASIYA PERALTA MD Discharge Date: 01/30/20 - Discharge Diagnosis (1) Active labor at term Is this a current diagnosis for this admission?: Yes (2) Meconium stained amniotic fluid, delivered, current hospitalization Is this a current diagnosis for this admission?: Yes (3) Post term over 40 weeks Is this a current diagnosis for this admission?: Yes (4) S/P primary low transverse Is this a current diagnosis for this admission?: Yes - Assessment Summary: 25yo s/p primary ppd2-stable and ready for discharge, understands warning s/s and reasons to rtc/[facility]. Has scheduled f/u visit for incision check. - Additional Information Resuscitation Status: Do Not Resuscitate Discharge Diet: As Tolerated, Regular Discharge Activity: Activity As Tolerated, Balance Activity w/Rest, No Driving, No Lifting Over 10 Pounds, No Lifting/Push/Pulling, Pelvic Rest, Slowly Increase Activity, No tub bath Referrals: ANASTASIYA PERALTA MD [Primary Care Provider] - 02/05/20 8:30 am (CALL THE OFFICE FOR ANY QUESTIONS OR CONCERNS.) Prescriptions: Oxycodone HCl/Acetaminophen [Percocet 5-325 mg Tablet] 1 tab PO Q4HP PRN 7 Days #20 tablet PRN Reason: For Pain Scale 3-5 Ibuprofen [Motrin 800 mg Tablet] 800 mg PO Q8HP PRN #30 tablet PRN Reason: For Pain Scale 1-3 Docusate Sodium [Colace 100 mg Capsule] 100 mg PO BID #60 capsule Ferrous Sulfate [Feosol 325 mg Tablet] 325 mg PO DAILY #30 tab Home Medications: Pnv 102/Iron/Folate 1/Dss/Dha [Vitafol Fe+ Docusate Combo Pck] 1 each PO DAILY 01/25/20 Docusate Sodium [Colace 100 mg Capsule] 100 mg PO BID #60 capsule 01/30/20 Ferrous Sulfate [Feosol 325 mg Tablet] 325 mg PO DAILY #30 tab 01/30/20 Ibuprofen [Motrin 800 mg Tablet] 800 mg PO Q8HP PRN #30 tablet 01/30/20 Oxycodone HCl/Acetaminophen [Percocet 5-325 mg Tablet] 1 tab PO Q4HP PRN 7 Days #20 tablet 01/30/20 Hospital Course 59. Maternal Morbidity (serious complications experinced by the mother associated with labor and delivery: None of the above Results Laboratory Results: WBC 18.5 10^3/uL (4.0-10.5) H 01/30/20 10:50 RBC 3.11 10^6/uL (3.72-5.28) L 01/30/20 10:50 Hgb 8.3 g/dL (12.0-15.5) L 01/30/20 10:50 Hct 24.5 % (36.0-47.0) L 01/30/20 10:50 MCV 79 fl (80-97) L 01/30/20 10:50 MCH 26.7 pg (27.0-33.4) L 01/30/20 10:50 MCHC 33.9 g/dL (32.0-36.0) 01/30/20 10:50 RDW 15.6 % (11.5-14.0) H 01/30/20 10:50 Plt Count 143 10^3/uL (150-450) L 01/30/20 10:50 Lymph % (Auto) 10.6 % (13-45) L 01/27/20 10:14 [place] % (Auto) 5.0 % (3-13) 01/27/20 10:14 Eos % (Auto) 0.0 % (0-6) 01/27/20 10:14 Baso % (Auto) 0.4 % (0-2) 01/27/20 10:14 Absolute Neuts (auto) 12.2 10^3/uL (1.7-8.2) H 01/27/20 10:14 Absolute Lymphs (auto) 1.5 10^3/uL (0.5-4.7) 01/27/20 10:14 Absolute Monos (auto) 0.7 10^3/uL (0.1-1.4) 01/27/20 10:14 Absolute Eos (auto) 0.0 10^3/uL (0.0-0.6) 01/27/20 10:14 Absolute Basos (auto) 0.1 10^3/uL (0.0-0.2) 01/27/20 10:14 Seg Neutrophils % 84.0 % (42-78) H 01/27/20 10:14 Sodium 131.3 mmol/L (137-145) L 01/27/20 14:50 Potassium 3.9 mmol/L (3.6-5.0) 01/27/20 14:50 Chloride 103 mmol/L (98-107) 01/27/20 14:50 Carbon Dioxide 21 mmol/L (22-30) L 01/27/20 14:50 Anion Gap 7 (5-19) 01/27/20 14:50 BUN 5 mg/dL (7-20) L 01/27/20 14:50 Creatinine 0.52 mg/dL (0.52-1.25) 01/27/20 14:50 Est GFR ( Amer) > 60 (>60) 01/27/20 14:50 Est GFR (MDRD) Non-Af > 60 (>60) 01/27/20 14:50 Glucose 100 mg/dL (75-110) 01/27/20 14:50 Uric Acid 4.4 mg/dL (2.5-6.2) 01/27/20 14:50 Calcium 9.5 mg/dL (8.4-10.2) 01/27/20 14:50 Total Bilirubin 0.9 mg/dL (0.2-1.3) 01/27/20 14:50 Direct Bilirubin 0.3 mg/dL (0.0-0.4) 01/27/20 14:50 Neonat Total Bilirubin Not Reportable 01/27/20 14:50 Neonat Direct Bilirubin Not Reportable 01/27/20 14:50 Neonat Indirect Bili Not Reportable 01/27/20 14:50 AST 25 U/L (14-36) 01/27/20 14:50 ALT 10 U/L (<35) 01/27/20 14:50 Alkaline Phosphatase 230 U/L (38-126) H 01/27/20 14:50 Lactate Dehydrogenase 149 U/L (120-246) 01/27/20 14:50 Total Protein 6.3 g/dL (6.3-8.2) 01/27/20 14:50 Albumin 3.3 g/dL (3.5-5.0) L 01/27/20 14:50 Urine Color YELLOW 01/27/20 09:45 Urine Appearance SLIGHTLY-CLOUDY 01/27/20 09:45 Urine pH 6.0 (5.0-9.0) 01/27/20 09:45 Ur Specific [place] 1.003 01/27/20 09:45 Urine Protein NEGATIVE mg/dL (NEGATIVE) 01/27/20 09:45 Urine Glucose (UA) NEGATIVE mg/dL (NEGATIVE) 01/27/20 09:45 Urine Ketones 20 mg/dL (NEGATIVE) H 01/27/20 09:45 Urine Blood LARGE (NEGATIVE) H 01/27/20 09:45 Urine Nitrite NEGATIVE (NEGATIVE) 01/27/20 09:45 Urine Bilirubin NEGATIVE (NEGATIVE) 01/27/20 09:45 Urine Urobilinogen NEGATIVE mg/dL (<2.0) 01/27/20 09:45 Ur Leukocyte Esterase MODERATE (NEGATIVE) H 01/27/20 09:45 Urine Ascorbic Acid NEGATIVE (NEGATIVE) 01/27/20 09:45 Urine Opiates Screen NEGATIVE 01/27/20 09:45 Urine Methadone Screen NEGATIVE 01/27/20 09:45 Ur Barbiturates Screen NEGATIVE 01/27/20 09:45 Ur Phencyclidine Scrn NEGATIVE 01/27/20 09:45 Ur Amphetamines Screen NEGATIVE 01/27/20 09:45 U Benzodiazepines Scrn NEGATIVE 01/27/20 09:45 Urine Cocaine Screen NEGATIVE 01/27/20 09:45 U Marijuana (THC) Screen NEGATIVE 01/27/20 09:45 RPR NONREACTIVE (NONREACTIVE) 01/27/20 10:14 Blood Type AB POSITIVE 01/27/20 10:14 Antibody Screen NEGATIVE 01/27/20 10:14
== END 2020-01-30 18:10 | disposition home or self-care (01) | DRG 788 ==
LOC: LC 09:38 → LR 10:35 → 2S 01-28 16:12
PROVIDERS: ADMIT Obstetrics & Gynecology; ATTEND Obstetrics & Gynecology Gynecology
PROC: 10D00Z1 Extraction of Products of Conception, Low, Open Approach (ICD-10-PCS; principal; 2020-01-28)
DX: O42.92 Full-term premature rupture of membranes, unspecified as to length of time between rupture and onset of labor (principal); O62.2 Other uterine inertia; O48.0 Post-term pregnancy; O76 Abnormality in fetal heart rate and rhythm complicating labor and delivery; O99.824 Streptococcus B carrier state complicating childbirth; Z3A.40 40 weeks gestation of pregnancy; Z37.0 Single live birth
CPT/HCPCS: 1967; 1968; 36415; 62273; 80053; 80307; 81005; 83615; 84550; 85025; 85027; 86592; 86850; 86900; 86901; 94760; 94799; 99140; J0131; J0690; J1200; J1885; J2210; J2250; J2270; J2405; J2540; J2550; J2590; J2704; J2795; J3010; J3490; J7060